=== PATIENT | male | born 1980 | race Caucasian/White ===

== ENCOUNTER 2019-12-24 15:21 | Emergency (ER) | payer OTHER ==
[~2019-12-24] VITALS: Ht 182.9 cm; Wt 97.5 kg
[~2019-12-24 15:21] MED LIST: CIPRO250 MG PO; CIPROFLOXACIN500 M1 PO; EFFEXOR 5050 MG/1 T1 PO; EFFEXOR XR150 MG PO; EFFEXOR100 MG PO; FLAGYL500 MG PO; GABAPENTIN 100100 MG PO; HYDROCODONE-APA1 TA1 PO; IBUPROFEN 800800 M1 PO; IBUPROFEN 800800 MG PO; NEURONTIN 300300 M1 PO; PERCOCET 5-3251 EACH PO; PERCOCET 7.5-31 EACH PO; PRILOSEC 20 MG20 MG PO; TAMSULOSIN HCL0.4 M1 PO; ZANTAC 150MG T150 M1 PO
[2019-12-24] MEDS ORDERED: CIPROFLOXIN HC2.5 M1 OPHTHALMIC (15:45)
[2019-12-24 15:47] VITALS: BP 163/97
== END 2019-12-24 15:54 | disposition home or self-care (01) ==
LOC: M.ERS 15:21
DX: T15.11XA Foreign body in conjunctival sac, right eye, initial encounter (principal); F41.9 Anxiety disorder, unspecified; F31.9 Bipolar disorder, unspecified; F17.210 Nicotine dependence, cigarettes, uncomplicated; Z87.442 Personal history of urinary calculi